=== PATIENT | male | born 2000 | race African-American/Black ===

== ENCOUNTER 2020-07-03 08:44 | Emergency (ER) | payer OTHER ==
[~2020-07-03] VITALS: Ht 188 cm; Wt 75.0 kg
[~2020-07-03 08:44] MED LIST: RISPERDAL
[2020-07-03 08:50] VITALS: BP 146/89
[2020-07-03] MEDS ORDERED: ACETAMINOPHEN 325MG TABLET PO ONE (09:00)
== END 2020-07-03 09:08 | disposition home or self-care (01) ==
LOC: ER 08:44
DX: S01.81XA Laceration without foreign body of other part of head, initial encounter (principal); J45.909 Unspecified asthma, uncomplicated; X99.8XXA Assault by other sharp object, initial encounter; Y07.04 Female partner, perpetrator of maltreatment and neglect; Y93.89 Activity, other specified; Y92.018 Other place in single-family (private) house as the place of occurrence of the external cause
CPT/HCPCS: 12011; 99283